=== PATIENT | female | born 1995 | race Caucasian/White ===

== ENCOUNTER 2018-05-30 13:32 | Inpatient (IN) | payer MEDICAID ==
[~2018-05-30] VITALS: Ht 165.1 cm; Wt 130.0 kg
[2018-05-30] VITALS (35 sets, daily range): BP systolic 106–235; BP diastolic 45–134; PULSE 70–104; TEMP 97.6–97.7
[2018-05-30] MEDS ORDERED: PRENATAL VITAMI1 TA3 PO (14:17)
[2018-05-30] MEDS ORDERED: SUDAFED30 MG PO (14:18)
--- NOTE | 2018-05-30 15:30 | NUR ---
1410 G1 at 38.4 weeks gestation to LDR4 with boyfriend. She was sent over from the office with increased blood pressures. Patient changed into gown and wedged left. EFMs explained and applied. FHR 135 and reactive. No CTX per toco. 1420 Blood pressure 201/120. IV started in right hand per orders. Assessment completed. 1426 Repeat blood pressure 199/120. Dr. Guerrero called and orders received. 1442 1 gm of tylenol given with a sip of water per orders, labetelol 20mg given IV per orders, and 4gm mag bolus started. 1500 Blood pressure 191/123. Dr. Guerrero called and orders to repeat labetelol received. 1503 20mg of labetelol given IV per orders. 4gm mag bolus complete and mag started at 2gm/hr. 1510 Blood pressure 190/115. Dr. Guerrero updated and orders received. 1519 40mg of labetelol given IV per orders. 1530 Blood pressure 146/95. Dr. Guerrero updated.
--- NOTE | 2018-05-30 16:00 | NUR ---
1555 Blood pressure 184/108. Dr. Guerrero called and updated, new orders received. 1604 40gm of labetelol given IV. 1610 Blood pressure 161/99. [address] Guerrero on unit and aware.
--- NOTE | 2018-05-30 16:45 | NUR ---
Dr. Guerrero at bedside. Reviews blood pressures. SVE /-3. Plan of care discussed with patient and decision to deliver by made. Patient prepped for OR and to OR at 1705.
--- NOTE | 2018-05-30 20:45 | NUR ---
Blood pressure noted 163/95, pulse 99. Retake BP 177/88, P 86. 2058: updated on pts status. See physican nofication. 2119: Medications explained and administered at this time. Will continue to monitor BP closely. 2149: BP elevated at 165/92. 10mg of labetalol administered per orders.
[2018-05-31] VITALS (32 sets, daily range): BP systolic 126–176; BP diastolic 61–100; PULSE 78–108; TEMP 97.7–98.3
--- NOTE | 2018-05-31 03:03 | NUR ---
Pt blood pressure noted to be 165/90, Pulse 79. Repeat blood pressure 176/100, pulse 90. Pt laying in bed watching tv. Plan of care explained to pt and signifcant other who verbalize understanding. 0310: updated on pts status. See physican notification.
--- NOTE | 2018-05-31 03:17 | NUR ---
Plan of care and new orders explained to pt and significant other. Procardia 60mg and labetelol 10mg administered at this time. Will continue to monitor closely.
--- NOTE | 2018-05-31 03:33 | NUR ---
REPEAT BP NOTED 163/92 PULSE 83. SECOND DOSE OF LABETALOL 10MG IV ADMINISTERED AT THIS TIME PER 'S ORDERS. WILL CONTINUE TO MONITOR.
[2018-05-31 07:05] LABS: HEMATOCRIT 39.2 % (37.0-47.0); HEMOGLOBIN 13.6 g/dl (12.5-16.0); MEAN CELL VOLUME 93 fl (80.0-100.0); MEAN CORPUSCULAR HEMOGLOBIN 32 pg (27.0-31.0); MEAN CORPUSCULAR HGB CONC 35 g/dl (33.0-37.0); MEAN PLATELET VOLUME 11.2 fl (7.4-10.4); PLATELET COUNT 175 K/mm3 (130-400); RED BLOOD COUNT 4.21 M/mm3 (4.10-5.30); REDCELL DISTRIBUTION WIDTH-CV 13.3 % (11.5-14.5)
[2018-05-31 07:14] LABS: ALBUMIN 3.2 gm/dL (3.5-5.0); BILIRUBIN,TOTAL 0.2 mg/dL (0.0-1.0); CALCIUM 8.1 mg/dL (8.4-10.2); CREATININE, serum 0.73 mg/dL (0.52-1.25); POTASSIUM 3.5 mmol/L (3.4-5.0); TOTAL PROTEIN 6.1 gm/dL (6.4-8.2)
[2018-05-31 07:50] LABS: MAGNESIUM 5.2 mg/dL (1.6-2.3)
--- NOTE | 2018-05-31 08:45 | NUR ---
Dr. Guerrero at nurses station and reviewing blood pressures and updated on plan of care that patient recieved throughout the night. 0910: at bedside and assessing patient and discussing plan of care. Dr. Guerrero orders to hold Procardia 60mg XL at this time. Plan of care per Dr. Guerrero is to continue Magnesium for 24 hours from start time. Once stable can have regular diet and move to room. Orders to call with update if blood pressure continue to increase throughout the day.
--- NOTE | 2018-05-31 15:15 | NUR ---
Patient assisted to edge of bed, patient dangles feet, and ambulates to standby assist to bathroom. Sampson catheter removed and patient tolerates well. Pericare done, new gown/underwear/pad on. Patient ambulatory back to bed and to room via bed. Will continue to monitor.
[2018-06-01] VITALS: BP 146/91; PULSE 98
[2018-06-01 07:15] VITALS: BP 152/89; PULSE 85; TEMP 98.7
[2018-06-01 09:02] LABS: HEMOGLOBIN 12.2 g/dl (12.5-16.0); MEAN CELL VOLUME 96 fl (80.0-100.0); MEAN CORPUSCULAR HEMOGLOBIN 32 pg (27.0-31.0); MEAN CORPUSCULAR HGB CONC 34 g/dl (33.0-37.0); MEAN PLATELET VOLUME 10.7 fl (7.4-10.4); PLATELET COUNT 206 K/mm3 (130-400); RED BLOOD COUNT 3.78 M/mm3 (4.10-5.30); REDCELL DISTRIBUTION WIDTH-CV 13.7 % (11.5-14.5)
[2018-06-01 09:05] LABS: HEMATOCRIT 36.4 % (37.0-47.0)
[2018-06-01 09:13] LABS: ALBUMIN 3.1 gm/dL (3.5-5.0); BILIRUBIN,TOTAL 0.3 mg/dL (0.0-1.0); CALCIUM 8.8 mg/dL (8.4-10.2); CREATININE, serum 0.74 mg/dL (0.52-1.25); POTASSIUM 3.9 mmol/L (3.4-5.0); TOTAL PROTEIN 6.1 gm/dL (6.4-8.2)
[2018-06-01 09:55] VITALS: BP 148/77; PULSE 96
--- NOTE | 2018-06-01 10:49 | NUR ---
Father and Grandmother was present. I congratulated the family on their new baby.
[2018-06-01 15:00] VITALS: BP 143/76; PULSE 81; TEMP 98.2
[2018-06-01 20:00] VITALS: BP 154/106; PULSE 94; TEMP 98.6
[2018-06-01 21:30] VITALS: BP 149/83; PULSE 90
[2018-06-02] VITALS (8 sets, daily range): BP systolic 117–169; BP diastolic 73–107; PULSE 80–103; TEMP 97.7–98.7
--- NOTE | 2018-06-02 08:00 | NUR ---
Blood pressure 159/99. Scheduled blood pressure medication given.
--- NOTE | 2018-06-02 10:30 | NUR ---
0930 - Blood pressure 169/107. 1030 - Blood pressure 169/96. 1040 - Dr. Guerrero called and updated on blood pressures after medication. Order for labetelol 100mg po now and change labetelol to 300mg po TID. 1046 - Patient updated on plan of care and labetelol 100mg given po.
--- NOTE | 2018-06-02 12:00 | NUR ---
Blood pressure 156/95. Dr. Alfredoure on unit and notified.
[2018-06-02] MEDS ORDERED: IBU800 M1 PO (14:15)
[2018-06-02] MEDS ORDERED: PROCARDIA XL90 MG PO (14:15)
[2018-06-02] MEDS ORDERED: PERCOCET 325 MG1 TA2 PO (14:16)
[2018-06-02] MEDS ORDERED: TRANDATE300 MG PO (14:17)
[2018-06-03] VITALS (7 sets, daily range): BP systolic 113–176; BP diastolic 61–109; PULSE 88–103; TEMP 98.2–98.7
--- NOTE | 2018-06-03 08:43 | NUR ---
Dr. Otto called and notified of blood pressure of 176/109. She is on her way to evaluate, orders to hold morning blood pressure medications for now.
--- NOTE | 2018-06-03 09:00 | NUR ---
Dr. Otto on unit, reviews patient chart, orders to give morning medications and hopitalist consult. Dr. Bustamante notified.
[2018-06-03 15:25] LABS: COLLECTION METHOD CLEAN CATCH
[2018-06-03 15:26] LABS: BASO % 0.3 % (0.0-2.0); EOS # 0.3 (0.0-0.7); EOS % 2.7 % (0-4.0); GRAN # 5.9 (1.4-6.5); GRAN % 63.9 % (42.2-75.2); HEMATOCRIT 38.5 % (37.0-47.0); HEMOGLOBIN 12.9 g/dl (12.5-16.0); LYMPH # 2.4 (1.2-3.4); LYMPH % 25.8 % (20.0-51.0); MEAN CELL VOLUME 96 fl (80.0-100.0); MEAN CORPUSCULAR HEMOGLOBIN 32 pg (27.0-31.0); MEAN CORPUSCULAR HGB CONC 34 g/dl (33.0-37.0); MONO # 0.6 (0.1-0.6); MONO % 6.4 % (1.7-9.3); PLATELET COUNT 271 K/mm3 (130-400); RED BLOOD COUNT 4.01 M/mm3 (4.10-5.30); REDCELL DISTRIBUTION WIDTH-CV 13.2 % (11.5-14.5)
[2018-06-03 15:33] LABS: ALBUMIN 3.7 gm/dL (3.5-5.0); BILIRUBIN,TOTAL 0.3 mg/dL (0.0-1.0); CALCIUM 9.9 mg/dL (8.4-10.2); CREATININE, serum 0.78 mg/dL (0.52-1.25); POTASSIUM 4.1 mmol/L (3.4-5.0)
[2018-06-03 15:45] LABS: MUCOUS Present /lpf; PH 7 (5-8); URINE APPEARANCE Clear; URINE BACTERIA None Seen /hpf; URINE BILIRUBIN Negative (NEGATIVE); URINE BLOOD 2+ (NEGATIVE); URINE COLOR Yellow; URINE GLUCOSE Negative (NEGATIVE); URINE KETONE Negative (NEGATIVE); URINE LEUKOCYTE ESTERASE Negative (NEGATIVE); URINE NITRATE Negative (NEGATIVE); URINE PROTEIN(semi-quant) 1+ (NEGATIVE); URINE RBC 0-2 /hpf; URINE UROBILINOGEN Negative (NEGATIVE)
[2018-06-03 15:49] LABS: URINE PROTEIN:CREAT RATIO 0.38 (0.00-0.14)
[2018-06-04 04:15] VITALS: BP 151/93; PULSE 88
[2018-06-04 07:08] VITALS: BP 136/89; PULSE 82; TEMP 98.4
[2018-06-04] MEDS ORDERED: TRANDATE 200MG200 MG PO (10:30)
--- NOTE | 2018-06-04 10:35 | NUR ---
1000 DR GILMAN HERE AT BEDSIDE TO DISCUSS OPTIONS AND DISCHARGE AT THIS TIME. 1015 DR CORBIN AT BEDSIDE. ORDERS GIVEN FOR DISCHARGE. ALL DISCHARGE INSTRUCTIONS GIVEN WITH VERBAL UNDERSTANDING.
== END 2018-06-04 10:54 | disposition home or self-care (01) | DRG 788 ==
LOC: OB 13:32 → LDR 14:10 → OB 05-31 15:30
PROVIDERS: Internal Medicine; Physician Assistant; ADMIT Student in an Organized Health Care Education/Training Program
PROC: 10D00Z1 Extraction of Products of Conception, Low, Open Approach (ICD-10-PCS; principal; 2018-05-30)
DX: O14.14 Severe pre-eclampsia complicating childbirth (principal); Z3A.38 38 weeks gestation of pregnancy; Z37.0 Single live birth; O99.214 Obesity complicating childbirth; E66.01 Morbid (severe) obesity due to excess calories; K21.9 Gastro-esophageal reflux disease without esophagitis; O14.15 Severe pre-eclampsia, complicating the puerperium
CPT/HCPCS: 99222; 99223; J0360; J0690; J1885; J2370; J2405; J2590; J3010; J3475; J7120

== ENCOUNTER 2021-05-30 03:08 | Emergency (ER) | payer SELFPAY ==
[~2021-05-30] VITALS: Ht 165.1 cm; Wt 129.5 kg
[~2021-05-30 03:08] MED LIST: IBU800 M1 PO; PERCOCET 325 MG1 TA2 PO; PRENATAL VITAMI1 TA3 PO; PROCARDIA XL90 MG PO; SUDAFED30 MG PO; TRANDATE 200MG200 MG PO; TRANDATE300 MG PO
[2021-05-30 03:12] VITALS: TEMP 97.8
[2021-05-30] MEDS ORDERED: AMOXICILLIN 50500 MG PO (03:27)
[2021-05-30 03:41] VITALS: BP 159/107; PULSE 110
== END 2021-05-30 03:51 | disposition home or self-care (01) ==
LOC: COL.ER 03:08
DX: K04.7 Periapical abscess without sinus (principal)
CPT/HCPCS: J1100